=== PATIENT | female | born 1975 | race Two or more races ===

== ENCOUNTER 2017-11-21 20:49 | Observation (INO) | payer OTHER ==
[~2017-11-21] VITALS: Ht 172.7 cm; Wt 130.6 kg
[~2017-11-21 20:49] MED LIST: HYDR25TA4; PHEN37.577; [UNRECOGNIZED DRUG - OTHER]
[2017-11-21 22:26] LABS: Eosinophils # (auto) 0 uL; Eosinophils % (auto) 0.1 % (0.0-7.0); Hemoglobin 12.6 g/dL (12.2-16.2); Monocytes # (auto) 0.4 uL; Neutrophils # (auto) 4.5 uL; Nucleated Red Blood Cells % 0.1 %
[2017-11-21 22:28] LABS: Basophils # (auto) 0 uL; Basophils % (auto) 0.6 % (0.0-2.0); Hematocrit 38.4 % (36.0-46.0); Lymphocytes # (auto) 1.2 uL; Lymphocytes % (auto) 19.2 % (10.0-50.0); Mean Corpuscular Hemoglobin 26.2 pg (28.0-32.0); Mean Corpuscular Hgb Conc. 32.8 g/dL (32.0-36.0); Mean Corpuscular Volume 79.9 fL (80.0-100.0); Neutrophils % (auto) 74.1 % (37.0-80.0); Platelet Count (auto) 263 10^3/uL (140-450); Red Blood Cells 4.81 10^6/uL (4.0-5.20); Red Cell Distribution Width 15.6 % (11.8-14.3)
[2017-11-21 22:45] LABS: BUN/Creatinine Ratio 12.9; Bilirubin, Total 0.7 mg/dL (0.2-1.0); Calcium 8.7 mg/dL (8.5-10.1); Potassium 4.5 mmol/L (3.5-5.1); Total Protein 7.2 g/dL (6.4-8.2)
[2017-11-22] MEDS ORDERED: SODIUM CHLORIDE 0.9% 1,000 ML IV ONE (02:15)
[2017-11-22 03:05] LABS: Amylase 31 U/L (25-115); Lipase 84 U/L (73-393)
[2017-11-22] MEDS ORDERED: ONDANSETRON HCL 4 MG/2 ML VIAL IV ONE (03:15)
[2017-11-22] MEDS ORDERED: fentaNYL CITRATE 100 MCG/2 ML VL IV ONE (03:15)
[2017-11-22] MEDS ORDERED: PANTOPRAZOLE 40 MG/10 ML VIAL IV ONE (03:15)
[2017-11-22] MEDS ORDERED: ONDANSETRON ODT 4 MG TAB PO ONE (03:30)
[2017-11-22 06:00] VITALS: BP 129/85
[2017-11-22 07:18] LABS: Urine Bacteria NONE SEEN /hpf (None Seen); Urine Blood Negative /uL (Negative); Urine Mucus FEW (None Seen); Urine Specific Gravity 1.012 (1.001-1.035); Urine WBC 11 /hpf (0 - 5)
== END 2017-11-22 07:33 | disposition left against medical advice (07) | DRG 392 ==
LOC: ER 21:02 → OVERFLOW 21:03 → ER 21:18
PROVIDERS: ADMIT Anesthesiology; ATTEND Anesthesiology
DX: K59.00 Constipation, unspecified (principal); J45.909 Unspecified asthma, uncomplicated; R94.5 Abnormal results of liver function studies
CPT/HCPCS: 36415; 74176; 80053; 81001; 82150; 83690; 85025; 96361; 96374; 96375; 99285; C9113; G0378; J3010; Q0162

== ENCOUNTER 2021-08-15 01:23 | Emergency (ER) | payer OTHER ==
[~2021-08-15] VITALS: Ht 177.8 cm; Wt 145.1 kg
[2021-08-15] MEDS ORDERED: MORPHINE SULFATE 4 MG/ML SYR/VIAL IV ONE ×2 (02:00→09:00)
[2021-08-15] MEDS ORDERED: KETAMINE 50mg/ML 10ml Vial (500mg/10ml) IV ONE (03:00)
[2021-08-15] MEDS ORDERED: ONDANSETRON HCL 4 MG/2 ML VIAL IV ONE (09:00)
[2021-08-15 09:07] LABS: Basophils # (auto) 0 10 ^3/uL (0-0.2); Basophils % (auto) 0.1 % (0.0-2.0); Eosinophils # (auto) 0 10 ^3/uL (0-0.8); Lymphocytes # (auto) 0.8 10 ^3/uL (0.4-5.4); Neutrophils % (auto) 85.5 % (37.0-80.0); Nucleated Red Blood Cells % 0.1 %
[2021-08-15 09:09] LABS: Hematocrit 38.9 % (36.0-46.0); Hemoglobin 12.8 g/dL (12.2-16.2); Lymphocytes % (auto) 7.7 % (10.0-50.0); Mean Corpuscular Hemoglobin 25.6 pg (28.0-32.0); Mean Corpuscular Hgb Conc. 32.8 g/dL (32.0-36.0); Mean Corpuscular Volume 78.1 fL (80.0-100.0); Monocytes # (auto) 0.7 10 ^3/uL (0-1.3); Monocytes % (auto) 6.7 % (0.0-12.0); Neutrophils # (auto) 9.2 10 ^3/uL (1.6-8.6); Red Blood Cells 4.98 10^6/uL (4.0-5.20); Red Cell Distribution Width 15.3 % (11.8-14.3); White Blood Cell 10.7 10^3/uL (4.4-10.8)
[2021-08-15 09:30] LABS: Albumin 2.9 g/dL (3.4-5.0); Calcium 7.5 mg/dL (8.5-10.1); Potassium 4.3 mmol/L (3.5-5.1)
[2021-08-15] MEDS ORDERED: HYDROmorphone HCL 2 MG/ML VL/or syr IV ONE (09:30)
[2021-08-15 09:32] LABS: BUN/Creatinine Ratio 16.4; Bilirubin, Total 0.5 mg/dL (0.2-1.0); Total Protein 6.1 g/dL (6.4-8.2)
[2021-08-15] MEDS ORDERED: ETOMIDATE (2MG/ML) 20ML VIAL IV ONE (10:15)
[2021-08-15 11:45] VITALS: BP 129/91
== END 2021-08-15 12:00 | disposition short-term general hospital (02) ==
LOC: EDBD 01:23 → ER 01:25
DX: S82.51XA Displaced fracture of medial malleolus of right tibia, initial encounter for closed fracture (principal); M54.2 Cervicalgia; M25.511 Pain in right shoulder; M25.512 Pain in left shoulder; F10.129 Alcohol abuse with intoxication, unspecified; Y90.9 Presence of alcohol in blood, level not specified; J45.909 Unspecified asthma, uncomplicated; V43.53XA Car driver injured in collision with pick-up truck in traffic accident, initial encounter; Y93.89 Activity, other specified; Y92.410 Unspecified street and highway as the place of occurrence of the external cause; Y99.8 Other external cause status
CPT/HCPCS: 27788; 36415; 71045; 72040; 72125; 73000; 73590; 73600; 73610; 80053; 80320; 85025; 96374; 96375; 96376; 99152; 99285; J1170; J2270; J2405

== ENCOUNTER 2021-09-14 09:05 | Inpatient (IN) | payer OTHER ==
[~2021-09-14] VITALS: Ht 172.7 cm; Wt 121.3 kg
[2021-09-14] MEDS ORDERED: MORPHINE SULFATE INJ 2 MG/ml SYRG IV ONE ×2 (10:15→18:00)
[2021-09-14] MEDS ORDERED: ONDANSETRON HCL 4 MG/2 ML VIAL IV ONE ×2 (10:15→18:00)
[2021-09-14 10:22] LABS: Eosinophils # (auto) 0 10 ^3/uL (0-0.8); Eosinophils % (auto) 0.2 % (0.0-7.0); Monocytes # (auto) 0.4 10 ^3/uL (0-1.3); Nucleated Red Blood Cells % 0.2 %
[2021-09-14 10:23] LABS: Basophils # (auto) 0.1 10 ^3/uL (0-0.2); Basophils % (auto) 0.9 % (0.0-2.0); Hematocrit 25.8 % (36.0-46.0); Hemoglobin 8.1 g/dL (12.2-16.2); Lymphocytes # (auto) 0.9 10 ^3/uL (0.4-5.4); Lymphocytes % (auto) 15.4 % (10.0-50.0); Mean Corpuscular Hemoglobin 24.1 pg (28.0-32.0); Mean Corpuscular Hgb Conc. 31.2 g/dL (32.0-36.0); Mean Corpuscular Volume 77.2 fL (80.0-100.0); Monocytes % (auto) 6.1 % (0.0-12.0); Neutrophils # (auto) 4.7 10 ^3/uL (1.6-8.6); Neutrophils % (auto) 77.4 % (37.0-80.0); Red Blood Cells 3.34 10^6/uL (4.0-5.20); Red Cell Distribution Width 19.5 % (11.8-14.3); White Blood Cell 6.1 10^3/uL (4.4-10.8)
[2021-09-14 10:45] LABS: Albumin 2.1 g/dL (3.4-5.0); BUN/Creatinine Ratio 14.8; Calcium 8.9 mg/dL (8.5-10.1); Magnesium 2.5 mg/dL (1.6-2.6); Potassium 3.8 mmol/L (3.5-5.1)
[2021-09-14 10:58] LABS: Bilirubin, Total 0.4 mg/dL (0.2-1.0); Total Protein 6.3 g/dL (6.4-8.2)
[2021-09-14] MEDS ORDERED: IOHEXOL 350 MG/ML 100ML IJ ONE (11:17)
[2021-09-15] MEDS ORDERED: ONDANSETRON HCL 4 MG/2 ML VIAL IV PRN (03:00)
[2021-09-15] MEDS ORDERED: ACETAMINOPHEN 325 MG TAB PO PRN (03:00)
[2021-09-15] MEDS ORDERED: DOCUSATE SOD 100 MG CAP PO PRN (03:00)
[2021-09-15] MEDS ORDERED: ALBUMIN 25% 100 ML IV ONE (03:00)
[2021-09-15 04:09] LABS: Basophils # (auto) 0 10 ^3/uL (0-0.2); Eosinophils # (auto) 0 10 ^3/uL (0-0.8); Eosinophils % (auto) 0.1 % (0.0-7.0); Monocytes # (auto) 0.3 10 ^3/uL (0-1.3); Monocytes % (auto) 6.3 % (0.0-12.0); White Blood Cell 4.9 10^3/uL (4.4-10.8)
[2021-09-15 04:11] LABS: Basophils % (auto) 0.3 % (0.0-2.0); Hematocrit 26.1 % (36.0-46.0); Hemoglobin 8.2 g/dL (12.2-16.2); Lymphocytes # (auto) 1.1 10 ^3/uL (0.4-5.4); Lymphocytes % (auto) 22.1 % (10.0-50.0); Mean Corpuscular Hemoglobin 24.1 pg (28.0-32.0); Mean Corpuscular Hgb Conc. 31.4 g/dL (32.0-36.0); Mean Corpuscular Volume 76.7 fL (80.0-100.0); Neutrophils # (auto) 3.5 10 ^3/uL (1.6-8.6); Neutrophils % (auto) 71.2 % (37.0-80.0); Nucleated Red Blood Cells % 0.3 %; Red Cell Distribution Width 19.3 % (11.8-14.3)
[2021-09-15] MEDS ORDERED: NITROGLYCERIN 0.4 MG SL TAB SL PRN (04:15)
[2021-09-15] MEDS ORDERED: MORPHINE SULFATE INJ 2 MG/ml SYRG IV PRN (04:15)
[2021-09-15 04:27] LABS: Albumin 2.1 g/dL (3.4-5.0); BUN/Creatinine Ratio 14.1; Calcium 8.6 mg/dL (8.5-10.1)
[2021-09-15 04:30] LABS: Bilirubin, Total 0.4 mg/dL (0.2-1.0); Total Protein 6.2 g/dL (6.4-8.2)
[2021-09-15] MEDS ORDERED: AZITHROMYCIN 500MG/ 250ML 250 ML IV ONE (05:30)
[2021-09-15] MEDS ORDERED: SODIUM CHLOR 0.9% PF (SALINE LOCK) 10ML VIAL/SYR IV SCH (06:00)
[2021-09-15 09:00] VITALS: BP 104/60
[2021-09-15] MEDS ORDERED: ESCI20TA PO (09:43)
[2021-09-15] MEDS ORDERED: ESCI10TA PO (09:43)
[2021-09-15] MEDS ORDERED: BUPRTAB3 PO (09:52)
[2021-09-15] MEDS ORDERED: MORP15TA PO (09:52)
[2021-09-15] MEDS ORDERED: TRAZ50TA2 PO (09:52)
[2021-09-15] MEDS ORDERED: GABA300C10 PO (09:59)
[2021-09-15] MEDS ORDERED: FERR-20 PO (09:59)
[2021-09-15] MEDS ORDERED: PERCOT PO (09:59)
[2021-09-15] MEDS ORDERED: MONT5CHW23 PO (09:59)
[2021-09-15] MEDS: MULTIPLE VITAMIN TAB PO SCH (10:40)
[2021-09-15] MEDS: ZINC SULFATE 220mg CAP or TAB PO SCH (10:40)
[2021-09-15] MEDS: ASCORBIC ACID 500 MG TAB PO SCH ×2 (10:40→21:23)
[2021-09-15] MEDS: ENOXAPARIN SOD 40 MG/0.4 ML SYRINGE SC SCH (10:40)
[2021-09-15] MEDS: FAMOTIDINE (10MG/ML) 2ML VL IV SCH (10:40)
[2021-09-15] MEDS: MORPHINE SULFATE INJ 2 MG/ml SYRG IV PRN ×2 (10:48→19:52)
[2021-09-15] MEDS ORDERED: VANCOMYCIN PER PHARMACY 0 MG IV SCH (12:30)
[2021-09-15 13:00] VITALS: BP 115/57
[2021-09-15] MEDS ORDERED: VANCOMYCIN 1GM/250ML 250 ML IV ONE (13:00)
[2021-09-15 13:12] LABS: Magnesium 2.4 mg/dL (1.6-2.6); Phosphorus 4.5 mg/dL (2.5-4.90)
[2021-09-15] MEDS: SODIUM CHLORIDE 0.9% 1,000 ML IV SCH (13:48)
[2021-09-15 13:54] LABS: INR 1.08 (0.9-1.15); Partial Thromboplastin Time 33.1 sec (23.6-33.0)
[2021-09-15] MEDS: PIPERACILLIN-TAZO 4.5GM 100 ML IV SCH ×2 (16:05→22:37)
[2021-09-15] MEDS: HYDROcodone-ACET 5/325MG TAB PO PRN ×2 (16:12→23:43)
[2021-09-15 16:55] VITALS: BP 114/68
[2021-09-15] MEDS: VANCOMYCIN 1GM/250ML 250 ML IV SCH (21:22)
[2021-09-15 21:51] VITALS: BP 117/65
[2021-09-16] MEDS: SODIUM CHLORIDE 0.9% 1,000 ML IV SCH (01:50)
[2021-09-16] MEDS: VANCOMYCIN 1GM/250ML 250 ML IV SCH ×3 (04:46→21:30)
[2021-09-16 05:00] VITALS: BP 141/88
[2021-09-16] MEDS: MORPHINE SULFATE INJ 2 MG/ml SYRG IV PRN ×4 (06:28→23:57)
[2021-09-16] MEDS: PIPERACILLIN-TAZO 4.5GM 100 ML IV SCH (06:33)
[2021-09-16] MEDS: ENOXAPARIN SOD 40 MG/0.4 ML SYRINGE SC SCH (09:22)
[2021-09-16] MEDS: FAMOTIDINE (10MG/ML) 2ML VL IV SCH (09:23)
[2021-09-16] MEDS: ASCORBIC ACID 500 MG TAB PO SCH ×2 (09:23→21:29)
[2021-09-16] MEDS: MULTIPLE VITAMIN TAB PO SCH (09:23)
[2021-09-16] MEDS: ZINC SULFATE 220mg CAP or TAB PO SCH (09:23)
[2021-09-16 09:28] LABS: Albumin 2.4 g/dL (3.4-5.0); Calcium 8.8 mg/dL (8.5-10.1); Magnesium 2.4 mg/dL (1.6-2.6); Potassium 3.8 mmol/L (3.5-5.1); Uric Acid 3.3 mg/dL (2.6-6.0)
[2021-09-16 09:35] LABS: INR 1.05 (0.9-1.15); Partial Thromboplastin Time 31.3 sec (23.6-33.0)
[2021-09-16 09:38] LABS: BUN/Creatinine Ratio 9.7; Bilirubin, Total 0.5 mg/dL (0.2-1.0); CRP High Sensitivity 4.93 mg/dL (< 0.3); Phosphorus 4.2 mg/dL (2.5-4.90); Total Protein 6.8 g/dL (6.4-8.2)
[2021-09-16 10:00] LABS: Thyroid Stimulating Hormone 1.26 uIU/mL (0.358-3.74)
[2021-09-16] MEDS ORDERED: AZITHROMYCIN 500MG/ 250ML 250 ML IV SCH (10:00)
[2021-09-16 13:00] VITALS: BP 134/83
[2021-09-16 14:00] LABS: Basophils # (auto) 0 10 ^3/uL (0-0.2); Eosinophils # (auto) 0 10 ^3/uL (0-0.8); Lymphocytes # (auto) 1.2 10 ^3/uL (0.4-5.4); Lymphocytes % (auto) 19.7 % (10.0-50.0); Monocytes # (auto) 0.4 10 ^3/uL (0-1.3); Monocytes % (auto) 7.2 % (0.0-12.0); Neutrophils % (auto) 72.4 % (37.0-80.0); Red Blood Cells 3.61 10^6/uL (4.0-5.20)
[2021-09-16 14:02] LABS: Basophils % (auto) 0.6 % (0.0-2.0); Eosinophils % (auto) 0.1 % (0.0-7.0); Hematocrit 27.3 % (36.0-46.0); Mean Corpuscular Hgb Conc. 31.8 g/dL (32.0-36.0); Mean Corpuscular Volume 75.6 fL (80.0-100.0); Neutrophils # (auto) 4.2 10 ^3/uL (1.6-8.6); Nucleated Red Blood Cells % 0.6 %; Red Cell Distribution Width 19.1 % (11.8-14.3); White Blood Cell 5.8 10^3/uL (4.4-10.8)
[2021-09-16 14:32] LABS: Hemoglobin 8.7 g/dL (12.2-16.2)
[2021-09-16 17:00] VITALS: BP 112/65
[2021-09-16] MEDS: HYDROcodone-ACET 5/325MG TAB PO PRN (20:06)
[2021-09-16 22:00] VITALS: BP 131/85
[2021-09-17] MEDS: HYDROcodone-ACET 5/325MG TAB PO PRN ×2 (02:32→19:58)
[2021-09-17 04:18] LABS: Basophils # (auto) 0 10 ^3/uL (0-0.2); Eosinophils # (auto) 0 10 ^3/uL (0-0.8); Hematocrit 29.1 % (36.0-46.0); Hemoglobin 9.2 g/dL (12.2-16.2); Lymphocytes # (auto) 1.2 10 ^3/uL (0.4-5.4); Mean Corpuscular Hgb Conc. 31.5 g/dL (32.0-36.0); Red Cell Distribution Width 19.4 % (11.8-14.3)
[2021-09-17 04:20] LABS: Basophils % (auto) 0.4 % (0.0-2.0); Eosinophils % (auto) 0.1 % (0.0-7.0); Lymphocytes % (auto) 23.8 % (10.0-50.0); Mean Corpuscular Hemoglobin 23.7 pg (28.0-32.0); Mean Corpuscular Volume 75.4 fL (80.0-100.0); Monocytes # (auto) 0.3 10 ^3/uL (0-1.3); Neutrophils # (auto) 3.4 10 ^3/uL (1.6-8.6); Neutrophils % (auto) 68.7 % (37.0-80.0); Nucleated Red Blood Cells % 0.2 %; Red Blood Cells 3.86 10^6/uL (4.0-5.20)
[2021-09-17 04:31] LABS: BUN/Creatinine Ratio 9.5; Calcium 8.8 mg/dL (8.5-10.1); Potassium 3.6 mmol/L (3.5-5.1)
[2021-09-17] MEDS: VANCOMYCIN 1GM/250ML 250 ML IV SCH ×2 (04:50→13:24)
[2021-09-17 05:00] VITALS: BP 131/79
[2021-09-17] MEDS: MORPHINE SULFATE INJ 2 MG/ml SYRG IV PRN ×3 (07:34→17:54)
[2021-09-17 09:00] VITALS: BP 136/80
[2021-09-17] MEDS ORDERED: cefTRIAXone 1GM/50ML D5W 50 ML IV SCH (09:00)
[2021-09-17] MEDS: ASCORBIC ACID 500 MG TAB PO SCH (10:04)
[2021-09-17] MEDS: MULTIPLE VITAMIN TAB PO SCH (10:04)
[2021-09-17] MEDS: ENOXAPARIN SOD 40 MG/0.4 ML SYRINGE SC SCH (10:04)
[2021-09-17 10:42] VITALS: BP 136/80
[2021-09-17 13:00] VITALS: BP 100/58
[2021-09-17 17:00] VITALS: BP 147/85
[2021-09-17 18:24] VITALS: BP 115/68
== END 2021-09-17 21:26 | disposition short-term general hospital (02) | DRG 183 ==
LOC: ER 09:05 → EDBD 09:05 → TELE 09-15 04:03 → CENTRAL 09-15 09:08
PROVIDERS: ADMIT Nurse Practitioner Family; ATTEND Internal Medicine
DX: S22.41XA Multiple fractures of ribs, right side, initial encounter for closed fracture (principal); E43 Unspecified severe protein-calorie malnutrition; J18.9 Pneumonia, unspecified organism; Z68.41 Body mass index [BMI] 40.0-44.9, adult; S42.001A Fracture of unspecified part of right clavicle, initial encounter for closed fracture; S70.02XA Contusion of left hip, initial encounter; D50.0 Iron deficiency anemia secondary to blood loss (chronic); E88.09 Other disorders of plasma-protein metabolism, not elsewhere classified; J45.909 Unspecified asthma, uncomplicated; E66.01 Morbid (severe) obesity due to excess calories; Z20.822 Contact with and (suspected) exposure to COVID-19; K21.9 Gastro-esophageal reflux disease without esophagitis; K29.70 Gastritis, unspecified, without bleeding; S82.891A Other fracture of right lower leg, initial encounter for closed fracture; V89.2XXA Person injured in unspecified motor-vehicle accident, traffic, initial encounter; Y93.89 Activity, other specified; Y92.89 Other specified places as the place of occurrence of the external cause; Y99.8 Other external cause status
CPT/HCPCS: 36415; 71045; 71275; 73000; 73502; 73600; 73700; 80048; 80053; 80061; 80202; 82270; 82550; 82553; 82728; 83036; 83615; 83690; 83735; 83880; 84100; 84439; 84443; 84484; 84550; 85025; 85379; 85610; 85652; 85730; 86141; 86850; 86870; 86900; 86901; 87040; 87077; 87081; 87086; 87186; 87205; 93970; 96365; 96375; 96376; G0378; J0696; J2405; J2543; P9047

== ENCOUNTER 2022-04-21 21:35 | Emergency (ER) | payer OTHER ==
[~2022-04-21] VITALS: Ht 172.7 cm; Wt 120.0 kg
[~2022-04-21 21:35] MED LIST changes: +BUPRTAB3 PO; +ESCI20TA PO; +FERR-20 PO; +GABA300C10 PO; +MONT5CHW23 PO; +MORP15TA PO; +PERCOT PO; +TRAZ50TA2 PO
[2022-04-21 22:21] VITALS: BP 106/78
[2022-04-22] MEDS ORDERED: ACET-1158 PO (00:01)
[2022-04-22] MEDS ORDERED: AMOX-277 PO (00:01)
== END 2022-04-22 02:26 | disposition home or self-care (01) ==
LOC: ER 21:37
DX: S71.152A Open bite, left thigh, initial encounter (principal); J45.909 Unspecified asthma, uncomplicated; F32.9 Major depressive disorder, single episode, unspecified; Z79.899 Other long term (current) drug therapy; Z98.890 Other specified postprocedural states; W54.0XXA Bitten by dog, initial encounter; Y93.89 Activity, other specified; Y92.89 Other specified places as the place of occurrence of the external cause; Y99.8 Other external cause status